=== PATIENT | male | born 1955 | race Two or more races ===

== ENCOUNTER 2020-03-31 16:12 | Outpatient (REF) | payer OTHER, SELFPAY ==
--- NOTE | 2020-03-31 17:11 | XR_ITS ---
EXAMINATION: XR CERVICAL, THORACIC AND LUMBAR SPINE XR PELVIS CLINICAL INFORMATION: Back pain. Pelvic pain. COMPARISON: None TECHNIQUE: 3 views lumbar spine, 3 views cervical spine, 3 views thoracic spine and 1 view AP pelvis. FINDINGS: AP PELVIS: There is normal symmetry of bilateral hip joints. SI joints are barely visible likely partially fused. No pelvic bony abnormality, fracture or lytic process seen. LUMBAR SPINE: There is normal lumbar lordosis. The vertebral heights and disc heights are normal. There is no visible acute fracture, dislocation or lytic process seen. There is mild ventral spondylosis throughout lumbar spine. No lytic or sclerotic process seen. There is bilateral L4-L5 facet joint arthropathy. DORSAL SPINE: There is normal thoracic kyphosis. The vertebral heights and alignment are normal. There is mild loss of disc height in the mid dorsal spine. There is no visible acute fracture, dislocation or subluxation seen. There is no lytic process. CERVICAL SPINE: There is normal cervical lordosis. The vertebral heights and alignment is normal. There is loss of C3-C4 disc height. Rest of the disc heights are normal. There is no visible acute fracture, dislocation or subluxation seen. XR/XR thoracic spine 2V IMPRESSION: 1. 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 2. Mild bilateral facet joint arthropathy L4-L5 disc level. No acute fracture or lytic process seen in lumbar spine. 3. Mild degenerative changes mid dorsal spine. No acute fracture or lytic process in dorsal spine. 4. Mild degenerative disc changes with spondylosis C3-C4 disc level. No visible acute fracture or dislocation seen.
== END 2020-03-31 16:13 | disposition home or self-care (01) ==
LOC: HO.XRAY 16:12
PROVIDERS: PCP Family Medicine; Referring Provider Family Medicine; Visit Provider Student in an Organized Health Care Education/Training Program
DX: M45.9 Ankylosing spondylitis of unspecified sites in spine (principal); M54.5 Low back pain
CPT/HCPCS: 72040; 72070; 72100; 72170; 99202

== ENCOUNTER 2020-04-01 11:49 | Outpatient (REF) | payer OTHER, SELFPAY ==
[2020-04-01 12:36] LABS: MANUAL DIFF FLAG NO
[2020-04-01 12:41] LABS: Basophils Percent Auto 0.2 % (0-2); Eosinophils Absolute Auto 0.1 X10*3/uL (0.0-0.4); Eosinophils Percent Auto 2.3 % (0-4); Hemoglobin 13.9 g/dl (14.0-18.0); Imm Gran Abs Auto 0.01 X10*3/uL (0.00-0.03); Imm Gran Pct Auto 0.2 % (0.0-0.4); Lymphocytes Absolute Auto 1.3 X10*3/uL (1.2-4.9); Lymphocytes Percent Auto 29.5 % (20-40); Mean Corpuscular HGB Conc 33.1 g/dl (31.0-36.0); Mean Corpuscular Hemoglobin 31.9 pg (27.0-33.0); Mean Corpuscular Volume 96.3 fL (80-98); Monocytes Absolute Auto 0.3 X10*3/uL (0.1-1.2); Monocytes Percent Auto 6.4 % (2-11); Neutrophils Absolute Auto 2.7 X10*3/uL (2.0-8.3); Neutrophils Percent Auto 61.4 % (45-73); Platelet Count 238 X10*3/uL (160-400); Red Blood Count 4.36 X10*6/uL (4.60-5.80); Red Cell Distribution Width 11.6 % (11.0-16.0); White Blood Count 4.4 X10*3/uL (4.8-10.8)
[2020-04-01 13:33] LABS: Alanine Aminotransferase 14 U/L (0-40); Albumin Level 4.5 g/dL (3.5-5.0); Alkaline Phosphatase 82 U/L (39-117); Anion Gap 12 (12-20); Aspartate Amino Transferase 17 U/L (5-37); Bilirubin Total 0.9 mg/dL (0.0-1.0); Blood Urea Nitrogen 14 mg/dL (9-16); C Reactive Protein 0.06 mg/dL (< or = 0.50); Calcium 9.2 mg/dL (8.4-10.2); Carbon Dioxide 28 mmol/L (22-29); Chloride 106 mmol/L (96-108); Estimated Glomerular Filt Rate > 60; Glucose Random 84 mg/dL (60-115); Potassium 4.2 mmol/l (3.3-5.1); Sodium 142 mmol/L (135-145); Total Protein 7.4 g/dL (6.5-8.0)
[2020-04-01 13:39] LABS: Erythrocyte Sedimentation Rate 9 MM/HR (0-15)
[2020-04-01 13:43] LABS: Rheumatoid Factor < 15.0 IU/mL (<15.0)
[2020-04-02 04:12] LABS: HBS Num1 64.23 mIU/mL (0-7.99); HBsAGNum1 0.23 S/CO (0.00-0.99); Hepatitis A Antibody IgM 0.09 Index (0-0.79); Hepatitis B Surface Antigen Negative (Negative); ~HepC Num1 16.17 S/CO (0.00-0.79); ~Hepatitis A Antibody IgM Nonreactive (Nonreactive); ~Hepatitis B Surface Antibody REACTIVE (Nonreactive); ~Hepatitis C Antibody Reactive (Nonreactive)
[2020-04-02 04:58] LABS: HBc Num2 2.46 S/CO; HBc Num3 2.48 S/CO; Hepatitis B Core Antibody Reactive (Nonreactive)
[2020-04-02 15:16] LABS: Cyclic Citrullinated Peptide <16 UNITS
[2020-04-03 09:02] LABS: Hepatitis B Core Antibody IgM NON-REACTIVE (NON-REACTIVE)
[2020-04-03 18:52] LABS: TS Negative Control Passed; TS Panel A 0; TS Panel B 0; TS Positive Control Passed; TSpotTB Negative (SeeBelow)
== END 2020-04-01 11:50 | disposition home or self-care (01) ==
LOC: HO.LAB 11:49
PROVIDERS: Visit Provider Student in an Organized Health Care Education/Training Program
DX: M54.5 Low back pain (principal)
CPT/HCPCS: 36415; 80053; 85025; 85652; 86140; 86200; 86431; 86481; 86704; 86705; 86706; 86709; 86803; 87340

== ENCOUNTER → 2020-05-07 16:02 | Outpatient (BNVA) | payer OTHER, SELFPAY | PROVIDERS: Visit Provider Student in an Organized Health Care Education/Training Program | DX: M54.5 Low back pain (principal); I10 Essential (primary) hypertension; Z79.899 Other long term (current) drug therapy | CPT/HCPCS: 99212 ==

== ENCOUNTER → 2020-11-11 09:04 | Outpatient (BNVA) | payer OTHER, SELFPAY | PROVIDERS: PCP Family Medicine; Visit Provider Student in an Organized Health Care Education/Training Program ==